=== PATIENT | female | born 1980 | race Caucasian/White ===

== ENCOUNTER 2022-02-18 23:41 | Emergency (ER) | payer SELFPAY ==
[~2022-02-18] VITALS: Ht 162.6 cm; Wt 63.5 kg
[~2022-02-18 23:41] MED LIST: ACET500C94 PO
[2022-02-19 00:18] VITALS: BP 112/69
--- NOTE | 2022-02-19 00:21 | NUR ---
TO LOBBY A/W BED AMBULATORY
--- NOTE | 2022-02-19 00:25 | NUR ---
SEEN AND EXAMINED BY CAROLEE WITH ORDERS AND CARRIED OUT.
[2022-02-19] MEDS ORDERED: ACETAMINOPHEN EXTRA STRENGTH 500 MG TAB PO ONE (00:30)
[2022-02-19] MEDS ORDERED: cephALEXin 500 MG CAP PO ONE (00:30)
[2022-02-19] MEDS ORDERED: IBUP-2213 PO (00:31)
[2022-02-19] MEDS ORDERED: CEPH-588 PO (00:31)
--- NOTE | 2022-02-19 00:35 | NUR ---
MEDICATED PER [facility] ORDER, TOLERATED WELL.
[2022-02-19 01:08] VITALS: BP 112/69
--- NOTE | 2022-02-19 01:08 | NUR ---
Patient discharged with v/s stable. Written and verbal after care instructions given and explained. Patient alert, oriented and verbalized understanding of instructions. Ambulatory with steady gait. All questions addressed prior to discharge. ID band removed. Patient advised to follow up with PMD. Rx of KEFLEX, MOTRIN given. Patient educated on indication of medication including possible reaction and side effects. Opportunity to ask questions provided and answered.
== END 2022-02-19 01:08 | disposition home or self-care (01) ==
LOC: MED 23:41
DX: L03.317 Cellulitis of buttock (principal); Z79.899 Other long term (current) drug therapy
CPT/HCPCS: 99283